=== PATIENT | male | born 1950 | race African-American/Black ===

== ENCOUNTER → 2019-03-28 12:58 | Outpatient (CLI) | payer MEDICARE, OTHER | END | disposition home or self-care (01) | LOC: D.US 12:58 | PROVIDERS: ATTEND Family Medicine | DX: M79.661 Pain in right lower leg (principal); R60.0 Localized edema ==

== ENCOUNTER → 2020-01-24 09:56 | Outpatient (CLI) | payer OTHER ==
--- NOTE | ~2020-01-24 | ST ---
PATIENT:JERI WAHL MEDICAL RECORD: [id number] SEX: M LOCATION:[facility] ORDER #: ADMISSION DATE: 01/24/20 AGE OF PATIENT: 69 REFERRING PHYSICIAN: INTERPRETING PHYSICIAN: CESAR SIMONS MD DATE OF SERVICE: 01/24/2020 NUCLEAR STRESS TEST INDICATION: Angina, hypertension, and hyperlipidemia. He was exercised on standard Lexiscan protocol with 33 mCi of sestamibi injected at peak stress, 11 mCi used previously for rest images. FINDINGS: Gated SPECT reveals preserved ejection fraction at 52% with decreased thickening and brightening throughout the inferior segments. SPECT imaging Cardiolite was used as myocardial perfusion agent. There is a fixed perfusion defect inferiorly compatible with previous inferior myocardial infarction. No evidence of ongoing ischemia. The remaining segments with homogeneous uptake at rest and stress. OVERALL IMPRESSION: This is a stable nuclear stress test only showing a fixed perfusion defect inferiorly. No ongoing ischemic burden, ejection fraction preserved at 52%. TRANSINT:[id number] Voice Confirmation ID: [id number] DOCUMENT ID: [id number] CESAR SIMONS MD CC: HEBER TAYLOR MD [id number] DICTATION DATE: 01/25/20 1248 TALK SHOW HOST: 01/25/202049 DEP CLI 01/24/20 [facility] [address] [id number]
== END | disposition home or self-care (01) ==
LOC: D.HCCECHO 09:56
PROVIDERS: ATTEND Internal Medicine Interventional Cardiology
DX: I10 Essential (primary) hypertension (principal)